=== PATIENT | female | born 2005 | race Hispanic/Latino ===

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

== ENCOUNTER 2024-02-11 03:36 | Emergency (ER) | payer OTHER, SELFPAY | END 2024-02-11 04:59 | disposition home or self-care (01) | LOC: ERS 03:36 | DX: T23.562A Corrosion of first degree of back of left hand, initial encounter (principal); T23.561A Corrosion of first degree of back of right hand, initial encounter; L24.0 Irritant contact dermatitis due to detergents; E11.9 Type 2 diabetes mellitus without complications; Y93.G1 Activity, food preparation and clean up; Y92.511 Restaurant or cafe as the place of occurrence of the external cause | CPT/HCPCS: 99283 ==